=== PATIENT | female | born 1955 | race Caucasian/White ===

== ENCOUNTER → 2018-05-31 16:22 | Outpatient (CLI) | payer OTHER, SELFPAY ==
[2018-05-31 17:19] LABS: Add Manual Diff / Slide Review NO; Basophils Percent Auto 0.4 % (0-2); Eosinophils Percent Auto 1.6 % (2-4); Hemoglobin 13.8 g/dL (12.0-16.0); Lymphocytes Percent Auto 29.9 % (25-40); Mean Corpuscular HGB Conc 34.4 % (30-36); Mean Corpuscular Hemoglobin 31.5 PG (26-34); Mean Corpuscular Volume 91.5 fL (80-100); Monocytes Percent Auto 8.3 % (3-14); Neutrophils Absolute Auto 3800 /uL (3000-5900); Neutrophils Percent Auto 59.8 % (50-75); Platelet Count 217 X10^3/uL (150-400); Red Blood Cell Count 4.37 X10^6/uL (4.0-5.2); Red Cell Distribution Width 13.3 % (11.6-14.8); White Blood Cell Count 6.4 X10^3/uL (4.5-11.0)
[2018-05-31 18:15] LABS: Erythrocyte Sedimentation Rate 7 MM/HR (0-20)
[2018-05-31 18:28] LABS: C-Reactive Protein Quant < 0.5 mg/dL (<1.0); Rheumatoid Factor < 8.6 IU/mL (<12.0)
[2018-06-04 05:59] LABS: ANA Screen POSITIVE (Negative); DNA Antibody Crithidia IFA NEGATIVE (Negative); Rheumatoid Factor <14 IU/mL; Sjogren Antiboday SS-A <1.0 NEG AI (<1.0 NEGATIVE); Sjogren Antiboday SS-B <1.0 NEG AI (<1.0 NEGATIVE); Sm Antibody <1.0 NEG AI (<1.0 NEGATIVE); Sm/RNP Antibody <1.0 NEG AI (<1.0 NEGATIVE)
== END ==
PROVIDERS: PCP Internal Medicine; Visit Provider Nurse Practitioner Family
DX: M25.50 Pain in unspecified joint (principal)
CPT/HCPCS: 36415; 85025; 85651; 86038; 86140; 86430

== ENCOUNTER 2020-04-23 11:38 | Emergency (ER) | payer OTHER, SELFPAY ==
[2020-04-23] VITALS (15 sets, daily range): BP systolic 123–159; BP diastolic 63–88; PULSE 65–98; RESP 14–28; TEMP 36.5; O2SAT 93–98; BMI 22.9
--- NOTE | 2020-04-23 12:01 | DI.CT.S_ITS ---
PROCEDURE: CT KIDNEY URETER BLADDER (KUB) INDICATIONS: left flank pain - urinary urgency TECHNIQUE: Noncontrast 5 mm thick sections acquired from the diaphragms to the symphysis. 5 mm thick coronal and sagittal reformats were then performed. For radiation dose reduction, the following was used: automated exposure control, adjustment of mA and/or kV according to patient size. COMPARISON: None. FINDINGS: Image quality: Excellent. Lung bases: Lung bases are clear. Heart size is normal. Urinary system: Both kidneys are normal in size. There mild to moderate left-sided hydronephrosis and hydroureter extending to the level of left UVJ. 1 cm stone is seen in dependent portion of bladder lumen just distal to left UVJ likely represent a passed left-sided stone. No right-sided hydronephrosis or perinephric fat stranding. Right ureter is within normal limits. Bladder wall thickness is normal. Other solid organs: Liver is normal in size. Numerous well-circumscribed hypodense and areas are seen scattered in the liver parenchyma measures up to 4.3 x 3.8 cm in size in anterior segment of right hepatic lobe and likely represent hepatic cysts. Gallbladder is within normal limits. Pancreas is normal in contours. Spleen is normal in size. No adrenal nodules. Peritoneum and bowel: Unenhanced bowel loops demonstrate normal wall thickness and caliber. No free fluid or air. The appendix is visualized and is within normal limits. Sigmoid diverticulosis is seen, no CT evidence of acute diverticulitis. Nodes and vessels: No retroperitoneal or mesenteric adenopathy by size criteria. Aorta and inferior vena cava are normal in caliber. Abdominal wall: No ventral hernias. Pelvis: No free pelvic fluid. No inguinal hernias or adenopathy. Bones: No suspicious bony lesions. No vertebral body compression fractures. IMPRESSION: 1. Finding is suggestive of a passed 1 cm left renal stone with mild to moderate left-sided hydronephrosis and hydroureter. 2. No right-sided renal stone or hydronephrosis. 3. No bowel obstruction. No free fluid or free air. Normal appendix. 4. Numerous hypodense areas scattered in the liver likely represent hepatic cysts. Dictated by: Pablo Smith M.D. on 04/23/2020 at 12:39 Approved by: Pablo Smith M.D. on 04/23/2020 at 13:15
[2020-04-23 12:02] LABS: Bacteria Urine None Seen
[2020-04-23 12:10] LABS: Amorphous Sediment Urine 1+; Culture Indicated Urine Cult Not Indicated; RBC Urine 10-30/HPF (0-5/HPF); WBC Urine 0-1/HPF (0-5/HPF)
--- NOTE | 2020-04-23 12:20 | ED_ITS ---
HPI - Abdominal Pain General Chief Complaint: Abdominal Pain Stated Complaint: ABDOMEN PAIN/ PRESSURE Time Seen by Provider: 04/23/20 11:46 Source: patient Mode of arrival: Ambulatory Limitations: no limitations History of Present Illness HPI narrative: The patient is a 64-year-old female who presents with left lower quadrant pain and urinary frequency ongoing for about a week. She says that her urinary urgency is pretty profound but she also has intense sharp pain on the left side which comes and goes in waves. It seems to be progressively getting worse she felt nauseous and even throughout prior to arrival. She denies any fever body aches sweats or chills. She is having normal bowel movements. She has had a kidney stone in the past she can not remember at this is what it felt like or not. She actually denies any left flank pain MD complaint: abdominal pain Pain Consistency: intermittent Related Data Previous Rx's Medication Instructions Recorded ondansetron 4 mg PO Q8H PRN #10 tab 04/23/20 tamsulosin [Flomax] 0.4 mg PO DAILY #7 cap 04/23/20 Allergies Allergy/AdvReac Type Severity Reaction Status Date / Time epinephrine [EPINEPHRINE] Allergy Unknown Heart Verified 04/23/20 11:46 palpatations Review of Systems Review of Systems Narrative: GENERAL: Denies chills, fatigue, malaise, fever, sweats, travel HEENT: Denies sinus pain, ear pain, sore throat, difficulty swallowing, neck pain RESPIRATORY: Denies dyspnea, cough, wheezing, hemoptysis, sputum. CARDIOVASCULAR: Denies chest pain, palpitations, orthopnea, edema GASTROINTESTINAL: See HPI : See HPI MUSCULOSKELETAL: Denies weakness, joint pain, or bony pain SKIN: No rash, no erythema, no pruritus NEUROLOGIC: Denies weakness, dizziness, headache, numbness, change in speech, confusion PSYCHIATRIC: No concerning psychosocial issues. 12 point review of systems is negative except for those stated above and HPI Patient History Medical History Foot pain (Chronic 2004) H/O renal calculi (Acute) History of vaginal delivery (Resolved 1980) Plantar warts (Resolved ~1969) Surgical History Anesthesia (Resolved) History of dilation and curettage (Resolved 1980) Family History Father Age: 95 Fam hx-ischem heart disease Family history of prostate cancer Mother Family history of ovarian cancer Brother No problems noted. Sister No problems noted. Social History Smoking Status: Never smoker Smoking Status: Never smoker alcohol intake frequency: holidays/special occasions only Substance Use Type: does not use Exam Initial Vital Signs Initial Vital Signs: Vital Signs Temperature 97.7 F 04/23/20 11:40 Pulse Rate 98 H 04/23/20 11:40 Respiratory Rate 17 04/23/20 11:40 Blood Pressure 138/88 04/23/20 11:40 Pulse Oximetry 95 04/23/20 11:40 GENERAL: Well-appearing, well-nourished and in no acute distress. HEENT: Head atraumatic,EOMI, pupils reactive CARDIOVASCULAR: Regular rate and rhythm without murmurs, rubs or gallops. RESPIRATORY: Breath sounds equal bilaterally, no wheezes rales or rhonchi. ABDOMEN: Soft, tender left lower quadrant no guarding or rebound : No CVA tenderness EXTREMITIES: Normal range of motion, no clubbing or edema. Neurovascularly intact NEUROLOGICAL: Alert and oriented x4.Normal gait and speech. SKIN: Warm, dry, no laceration, no petechiae, no rashes or lesions. Course Orders Ordered: ED Orders 04/23/20 11:50 Urine Microscopic Stat 04/23/20 12:01 CT kidney ureter bladder (KUB) Stat 04/23/20 12:12 Complete Blood Count AUTO DIFF Stat Comprehensive Metabolic Panel Stat Lipase Stat Discontinued Medications Ketorolac Tromethamine (Toradol) 15 mg IV NOW ONE Stop: 04/23/20 12:02 Last Admin: 04/23/20 12:30 Dose: 15 mg Documented by: RICO Ondansetron HCl (Zofran) 4 mg IV NOW ONE Stop: 04/23/20 12:02 Last Admin: 04/23/20 12:33 Dose: 4 mg Documented by: RICO Consultations Consultation #1: Dr. Kingston, recommends adding Flomax, and is happy to see patient as outpatient if needed Time: 13:45 Vital Signs Vital signs: Vital Signs - 8 hr 04/23/20 11:40 04/23/20 11:43 04/23/20 11:44 Temperature 97.7 F Pulse Rate 98 H 97 H 96 H Respiratory Rate 17 Blood Pressure 138/88 138/88 Pulse Oximetry 95 96 96 04/23/20 11:50 04/23/20 12:00 04/23/20 12:01 Temperature Pulse Rate 90 86 91 H Respiratory Rate 18 19 21 Blood Pressure 159/66 H Pulse Oximetry 98 98 98 04/23/20 12:10 04/23/20 12:20 04/23/20 12:30 Temperature Pulse Rate 74 75 92 H Respiratory Rate 28 H 21 Blood Pressure Pulse Oximetry 97 93 93 04/23/20 12:39 04/23/20 12:40 04/23/20 12:50 Temperature Pulse Rate 73 78 66 Respiratory Rate 14 18 18 Blood Pressure 131/63 Pulse Oximetry 98 97 96 04/23/20 13:00 04/23/20 13:27 04/23/20 13:30 Temperature Pulse Rate 66 69 65 Respiratory Rate 17 18 18 Blood Pressure 123/72 Pulse Oximetry 97 97 97 MDM - Abdominal Pain Lab Data Attestation: I reviewed the patient's lab results. Result diagrams: 04/23/20 12:12 04/23/20 12:12 Labs: Lab Results 04/23/20 04/23/20 04/23/20 Range/Units 11:50 12:12 12:12 WBC 5.9 (4.5-11.0) X10^3/uL RBC 4.72 (4.0-5.2) X10^6/uL Hgb 15.1 (12.0-16.0) g/dL Hct 43.4 (36-46) % MCV 92.0 (80-100) fL MCH 31.9 (26-34) PG MCHC 34.7 (30-36) % RDW 13.2 (11.6-14.8) % Plt Count 267 (150-400) X10^3/uL Neut % (Auto) 57.8 (50-75) % Lymph % (Auto) 29.8 (25-40) % [place] % (Auto) 10.1 (3-14) % Eos % (Auto) 1.8 L (2-4) % Baso % (Auto) 0.5 (0-2) % Neut # (Auto) 3400 (4664-9095) /uL Lymph # (Auto) 1700 (1434-1140) /uL [place] # (Auto) 600 (0-900) /uL Eos # (Auto) 100 (0-450) /uL Baso # (Auto) 0 (0-100) /uL Sodium 139 (137-145) mmol/L Potassium 4.2 (3.4-5.1) mmol/L Chloride 105 (98-107) mmol/L Carbon Dioxide 26 (22-32) mmol/L BUN 14 (7-17) mg/dL Creatinine 0.75 (0.52-1.04) mg/dL Estimated GFR > 60.0 (>60) mL/min BUN/Creatinine Ratio 18.7 (6-22) Glucose 96 (80-110) mg/dL Calcium 10.2 (8.4-10.2) mg/dL Total Bilirubin 0.6 (0.2-1.3) mg/dL AST 35 (14-36) IU/L ALT 25 (<35) IU/L Alkaline Phosphatase 65 (38-126) U/L Total Protein 8.0 (6.3-8.2) g/dL Albumin 4.6 (3.5-5.0) g/dL Globulin 3.4 (1.7-4.1) g/dL Albumin/Globulin Ratio 1.4 (1.0-2.8) Lipase 211 (23-300) U/L Urine RBC 10-30/hpf H (0-5/HPF) Urine WBC 0-1/hpf (0-5/HPF) Amorphous Sediment 1+ Urine Bacteria None seen (None) Ur Culture Indicated? Cult not indicated Point of care testing: Urine Dip Bedside Urine Glucose Negative Bedside Urine Bilirubin - Negative Bedside Urine Ketone - Negative Urine Specific [place] 1.030 Bedside Urine Occult Blood +++ Bedside Urine pH 6.0 Bedside Urine Protein - Negative Bedside Urine Urobilinogen - Negative Bedside Urine Nitrite - Negative Bedside Urine Leukocytes - Negative Esterase Imaging Data CT scan - abdomen/pelvis: Radiologist's Impression: PROCEDURE: CT KIDNEY URETER BLADDER (KUB) INDICATIONS: left flank pain - urinary urgency TECHNIQUE: Noncontrast 5 mm thick sections acquired from the diaphragms to the symphysis. 5 mm thick coronal and sagittal reformats were then performed. For radiation dose reduction, the following was used: automated exposure control, adjustment of mA and/or kV according to patient size. COMPARISON: None. FINDINGS: Image quality: Excellent. Lung bases: Lung bases are clear. Heart size is normal. Urinary system: Both kidneys are normal in size. There mild to moderate left- sided hydronephrosis and hydroureter extending to the level of left UVJ. 1 cm stone is seen in dependent portion of bladder lumen just distal to left UVJ likely represent a passed left-sided stone. No right-sided hydronephrosis or perinephric fat stranding. Right ureter is within normal limits. Bladder wall thickness is normal. Other solid organs: Liver is normal in size. Numerous well-circumscribed hypodense and areas are seen scattered in the liver parenchyma measures up to 4.3 x 3.8 cm in size in anterior segment of right hepatic lobe and likely represent hepatic cysts. Gallbladder is within normal limits. Pancreas is normal in contours. Spleen is normal in size. No adrenal nodules. Peritoneum and bowel: Unenhanced bowel loops demonstrate normal wall thickness and caliber. No free fluid or air. The appendix is visualized and is within normal limits. Sigmoid diverticulosis is seen, no CT evidence of acute diverticulitis. Nodes and vessels: No retroperitoneal or mesenteric adenopathy by size criteria. Aorta and inferior vena cava are normal in caliber. Abdominal wall: No ventral hernias. Pelvis: No free pelvic fluid. No inguinal hernias or adenopathy. Bones: No suspicious bony lesions. No vertebral body compression fractures. IMPRESSION: 1. Finding is suggestive of a passed 1 cm left renal stone with mild to moderate left-sided hydronephrosis and hydroureter. 2. No right-sided renal stone or hydronephrosis. 3. No bowel obstruction. No free fluid or free air. Normal appendix. 4. Numerous hypodense areas scattered in the liver likely represent hepatic cysts. Dictated by: Pablo Smith M.D. on 04/23/2020 at 12:39 Approved by: Pablo Smith M.D. on 04/23/2020 at 13:15 MDM Narrative Medical decision making narrative: Patient is found to have a large 1 cm stone in her bladder suggestive of a recently passed kidney stone. This may be the cause of her urinary urgency. There is no sign of infection on her urine. I have discussed case with urology who recommends adding Flomax and to be seen as an outpatient. He said it is possible to pass the stone naturally but probably unlikely. I have discussed with patient signs and symptoms and when to return I also discussed with her need to follow-up with urology. Her pain is significantly better after Toradol and Zofran. Discharge Plan Departure Patient Disposition: Home Clinical Impression: Calculus of kidney Discharge Date/Time: 04/23/20 14:07 Instructions: DI for Kidney Stones Activity Restrictions/Additional Instructions: * You've been diagnosed with kidney stone * What to do: Increase fluid intake, Strain urine, try to catch stone * Please follow-up with your primary care provider in the next 2-3 days, you may require urology consultation please discuss this with -If you should have fever, or pain is uncontrolled with medication at home or any other concerning symptoms return to ER for further evaluation MEDICATIONS-->Sent to [facility] in [place] Take Motrin 800 mg every 8 hours as needed for pain Take Zofran every 4-6 hours if needed for nausea Take Flomax 1 tablet once a day Prescriptions: New tamsulosin [Flomax] 0.4 mg capsule,extended release 24hr 0.4 mg PO DAILY Qty: 7 RF: 0 ondansetron 4 mg tablet,disintegrating 4 mg PO Q8H PRN (Reason: nausea and vomiting) Qty: 10 RF: 0 Referrals: Shoshana Kingston MD [Physician] - Antonio Corcoran MD [Primary Care Provider] -
[2020-04-23 12:24] LABS: Add Manual Diff / Slide Review NO; Basophils Absolute Auto 0 /uL (0-100); Basophils Percent Auto 0.5 % (0-2); Eosinophils Absolute Auto 100 /uL (0-450); Eosinophils Percent Auto 1.8 % (2-4); Hematocrit 43.4 % (36-46); Hemoglobin 15.1 g/dL (12.0-16.0); Lymphocytes Absolute Auto 1700 /uL (1100-4500); Lymphocytes Percent Auto 29.8 % (25-40); Mean Corpuscular HGB Conc 34.7 % (30-36); Mean Corpuscular Hemoglobin 31.9 PG (26-34); Monocytes Absolute Auto 600 /uL (0-900); Monocytes Percent Auto 10.1 % (3-14); Neutrophils Absolute Auto 3400 /uL (1500-7000); Neutrophils Percent Auto 57.8 % (50-75); Platelet Count 267 X10^3/uL (150-400); Red Blood Cell Count 4.72 X10^6/uL (4.0-5.2); Red Cell Distribution Width 13.2 % (11.6-14.8); White Blood Cell Count 5.9 X10^3/uL (4.5-11.0)
[2020-04-23] MEDS: KETOROLAC 60 MG/2 ML VIAL 15 MG IV (12:30)
[2020-04-23] MEDS: ONDANSETRON 4 MG/2 ML INJ IV (12:33)
[2020-04-23 12:34] LABS: Alanine Aminotransferase 25 IU/L (<35); Albumin 4.6 g/dL (3.5-5.0); Albumin Globulin Ratio 1.4 (1.0-2.8); Alkaline Phosphatase 65 U/L (38-126); Aspartate Aminotransferase 35 IU/L (14-36); BUN Creatinine Ratio 18.7 (6-22); Bilirubin Total 0.6 mg/dL (0.2-1.3); Blood Urea Nitrogen 14 mg/dL (7-17); Calcium 10.2 mg/dL (8.4-10.2); Carbon Dioxide 26 mmol/L (22-32); Chloride 105 mmol/L (98-107); Estimated Glomerular Filt Rate > 60.0 mL/min (>60); Globulin 3.4 g/dL (1.7-4.1); Glucose 96 mg/dL (80-110); HEMOLYSIS 19 (0-50); Lipase 211 U/L (23-300); Potassium 4.2 mmol/L (3.4-5.1); Sodium 139 mmol/L (137-145)
== END 2020-04-23 14:07 | disposition home or self-care (01) ==
PROVIDERS: Emergency Provider Emergency Medicine; Family Provider Internal Medicine; PCP Internal Medicine
DX: N20.0 Calculus of kidney (principal)
CPT/HCPCS: 36415; 74176; 80053; 81003; 81015; 83690; 85025; 96374; 96375; 99284; J1885; J2405

== ENCOUNTER 2020-04-30 13:39 | Emergency (ER) | payer OTHER, SELFPAY ==
[2020-04-30 13:44] VITALS: BP 148/68; PULSE 86; RESP 16; TEMP 37.2; O2SAT 97; BMI 22.9
[2020-04-30] MEDS: SODIUM CHLORIDE 0.9% 1,000 ML 150 ML IV (14:07)
[2020-04-30 14:15] LABS: Add Manual Diff / Slide Review NO; Basophils Absolute Auto 0 /uL (0-100); Basophils Percent Auto 0.5 % (0-2); Eosinophils Absolute Auto 100 /uL (0-450); Hematocrit 41.8 % (36-46); Hemoglobin 14.2 g/dL (12.0-16.0); Lymphocytes Absolute Auto 1900 /uL (1100-4500); Lymphocytes Percent Auto 31.4 % (25-40); Mean Corpuscular HGB Conc 33.9 % (30-36); Mean Corpuscular Volume 91.6 fL (80-100); Monocytes Absolute Auto 600 /uL (0-900); Monocytes Percent Auto 9.7 % (3-14); Neutrophils Absolute Auto 3500 /uL (1500-7000); Neutrophils Percent Auto 56.4 % (50-75); Platelet Count 251 X10^3/uL (150-400); Red Blood Cell Count 4.56 X10^6/uL (4.0-5.2); Red Cell Distribution Width 13.2 % (11.6-14.8); White Blood Cell Count 6.2 X10^3/uL (4.5-11.0)
[2020-04-30] MEDS: ONDANSETRON 4 MG/2 ML INJ IV ×2 (14:17→15:01)
[2020-04-30 14:26] LABS: Alanine Aminotransferase 24 IU/L (<35); Albumin 4.7 g/dL (3.5-5.0); Albumin Globulin Ratio 1.5 (1.0-2.8); Alkaline Phosphatase 69 U/L (38-126); Aspartate Aminotransferase 35 IU/L (14-36); BUN Creatinine Ratio 24.7 (6-22); Bilirubin Total 0.6 mg/dL (0.2-1.3); Blood Urea Nitrogen 20 mg/dL (7-17); Calcium 10.2 mg/dL (8.4-10.2); Carbon Dioxide 27 mmol/L (22-32); Chloride 104 mmol/L (98-107); Estimated Glomerular Filt Rate > 60.0 mL/min (>60); Globulin 3.1 g/dL (1.7-4.1); Glucose 95 mg/dL (80-110); HEMOLYSIS < 15 (0-50); Lipase 173 U/L (23-300); Potassium 4.3 mmol/L (3.4-5.1); Sodium 138 mmol/L (137-145); Total Protein 7.8 g/dL (6.3-8.2)
[2020-04-30 14:27] LABS: Bacteria Urine None Seen; WBC Urine None Seen (0-5/HPF)
--- NOTE | 2020-04-30 14:31 | ED.FEMALEGU ---
HPI - Female Genitourinary <Soo Montes PA-C - Last Filed: 04/30/20 23:29> General Chief complaint: Urogenital-Female Stated complaint: kidney stone pain and pressure Time Seen by Provider: 04/30/20 14:31 Source: patient Mode of arrival: Ambulatory History of Present Illness HPI Narrative: This is a 64-year-old woman with a recent history of ureterolithiasis and a 1 cm stone in the bladder on CT (04/23/20), who presents to the emergency department complaining of severe left lower quadrant pain and generalized abdominal ?pressure? that began this morning and has been worsening all day she says that this pain feels very similar to the pain that she had when she was here recently for her stone except she thinks that it is worse. She has also been having some nausea and some vomiting today. She says the pain is constant but it is ?coming in waves?. She says I ?cannot remember if I ate anything today but I think it must have?. She states because she has been straining from the pressure that she feels in her bladder she has been having loose stools all day as well she says that this happened with her previous episode too. She has not taken anything for pain today. She states ?something is definitely wrong?. She does not want any IV fluids initially because she feels her bladder is full of pressure and she feels like she is going all the time, but only a tiny bit at a time and is worried more fluids would make this worse. She denies fever, chills, chest pain, back pain, syncope, or any other symptoms. MD Complaint: dysuria, pelvic pain and other (Abdominal pain) Onset (ago): hour(s) (8) Location: suprapubic, LLQ and other (Generalized) Female Urogenital Radiation: Non-Radiating Severity: severe Severity scale (1-10): 10 Quality: Aching (Waves) Duration: constant and progressively worsening Relieving factors: none Exacerbating factors: none Urinary symptoms: Difficulty Urinating, Hematuria and Urgency Patient : No Related Data Home Medications Medication Instructions Recorded Confirmed cholecalciferol (vitamin D3) 25 mcg PO DAILY 05/03/20 05/03/20 [Vitamin D3] multivitamin 1 tab PO DAILY 07/10/20 07/10/20 Previous Rx's Medication Instructions Recorded ondansetron 4 mg PO Q8H PRN #10 tab 04/23/20 tamsulosin [Flomax] 0.4 mg PO DAILY #7 cap 04/23/20 oxycodone 5 mg PO Q4H PRN #14 tab 05/03/20 Allergies Allergy/AdvReac Type Severity Reaction Status Date / Time epinephrine [EPINEPHRINE] Allergy Unknown Heart Verified 05/03/20 09:28 palpatations Review of Systems <Soo Montes PA-C - Last Filed: 04/30/20 23:29> Review of Systems Narrative: GENERAL: Denies chills, fatigue, malaise, fever, sweats. HEENT: Denies sinus pain, ear pain, sore throat, difficulty swallowing, dizziness. RESPIRATORY: Denies dyspnea, cough, wheezing, hemoptysis, sputum. CARDIOVASCULAR: Denies chest pain, palpitations, orthopnea, edema, GASTROINTESTINAL: Denies nausea, vomiting, positive for abdominal pain and pelvic pressure, positive for loose stools today, negative for diarrhea, constipation, melena. : Denies dysuria, positive for frequency, negative for incontinence, hematuria, urinary retention. MUSCULOSKELETAL: denies weakness, joint pain, or bony pain SKIN: Denies rash, skin lesions, or other NEUROLOGIC: Denies weakness, headache, numbness, change in speech, confusion, seizures, incoordination. PSYCHIATRIC: No concerning psychosocial issues. 12 point review of systems is negative except for those stated above Patient History <Soo Montes PA-C - Last Filed: 04/30/20 23:29> Medical History (Updated 05/01/20 @ 11:28 by Shoshana Kingston MD) Calculus of distal left ureter (Acute) Foot pain (Chronic 2004) H/O renal calculi (Acute) History of vaginal delivery (Resolved 1980) Lower urinary tract symptoms (LUTS) (Acute) Personal history of urinary calculi (Acute) Plantar warts (Resolved ~1969) Surgical History Anesthesia (Resolved) History of dilation and curettage (Resolved 1980) Family History Father Age: 95 Fam hx-ischem heart disease Family history of prostate cancer Mother Family history of ovarian cancer Brother No problems noted. Sister No problems noted. alcohol intake frequency: holidays/special occasions only Substance Use Type: does not use Exam <Soo Montes PA-C - Last Filed: 04/30/20 23:29> Narrative Exam Narrative: GENERAL: 64 year old patient appears stated age. Well-nourished, well-developed patient, in moderate-severe distress, sitting up in hospital bed, very uncomfortable looking. HEAD: Atraumatic. Normocephalic. EYES: Pupils equal round and reactive. Extraocular motions intact. No scleral icterus. No injection or drainage. ENT: Nose without bleeding, purulent drainage. Throat without erythema, tonsillar hypertrophy or exudate. Airway patent. NECK: Trachea midline. Non tender CARDIOVASCULAR: Regular rate and rhythm without murmurs, gallops, or rubs. RESPIRATORY: Clear to auscultation. Breath sounds equal bilaterally. No wheezes, rales, or rhonchi. GASTROINTESTINAL: Abdomen with guarding, diffuse tender, most prominent in the left lower quadrant nondistended. EXTREMITIES: No edema or joint tenderness. BACK: Nontender without deformity or crepitance. No flank tenderness. NEURO: AOx3. SKIN: No rash or erythema of visible areas Initial Vital Signs Initial Vital Signs: Vital Signs Temperature 98.9 F 04/30/20 13:44 Pulse Rate 86 04/30/20 13:44 Respiratory Rate 16 04/30/20 13:44 Blood Pressure 148/68 H 04/30/20 13:44 Pulse Oximetry 97 04/30/20 13:44 <Ami Wills DO - Last Filed: 05/05/20 07:31> Initial Vital Signs Initial Vital Signs: Vital Signs Temperature 98.9 F 04/30/20 13:44 Pulse Rate 86 04/30/20 13:44 Respiratory Rate 16 04/30/20 13:44 Blood Pressure 148/68 H 04/30/20 13:44 Pulse Oximetry 97 04/30/20 13:44 Scores <ADRIENNE Guzman Last Filed: 04/30/20 23:29> GCS [place] coma scale eye opening: Spontaneous Williams coma scale verbal response: Orientated Williams coma scale motor response: Obey commands Williams coma scale total score: 15 Course <ADRIENNE Guzman Last Filed: 04/30/20 23:29> Course Course Narrative: Radiologist called and advised that she has a stone in her distal ureter that he believes is about 12 mm on the long axis, this was believed to have been passed into the bladder on the previous study however he states it is clearly not passed into the bladder he believes it is the same stone visualized on the previous study and she also has hydronephrosis however hydroureter and some hypoperfusion of her left renal cortex. 16:[address] Kingston and provided patient report and CT imaging impression, he advises since the patient has an appointment with him tomorrow, she should be NPO after midnight tonight and he will get things set up for possibly going and with laser tomorrow in getting this stone removed. He advises to continue Flomax and either tramadol or Toradol for pain. 16:27 Orders Ordered: Discontinued Medications Sodium Chloride (Normal Saline 0.9%) 1,000 mls @ 150 mls/hr IV CONT BIGG Last Infusion: 04/30/20 16:48 Dose: 0 mls/hr Documented by: Admin: 04/30/20 14:07 Dose: 150 mls/hr Documented by: ESHA Ketorolac Tromethamine (Toradol) 30 mg IM NOW ONE Stop: 04/30/20 14:42 Last Admin: 04/30/20 14:51 Dose: 30 mg Documented by: DEMETRIUS Ondansetron HCl (Zofran) 4 mg IV NOW ONE Stop: 04/30/20 14:16 Last Admin: 04/30/20 14:17 Dose: 4 mg Documented by: KIRK Ondansetron HCl (Zofran) 4 mg IV NOW ONE Stop: 04/30/20 14:57 Last Admin: 04/30/20 15:01 Dose: 4 mg Documented by: DEMETRIUS Vital Signs Vital signs: Vital Signs - 8 hr 04/30/20 16:55 Pulse Rate 66 Respiratory Rate 14 Blood Pressure 119/57 L Pulse Oximetry 100 <Ami Wills DO - Last Filed: 05/05/20 07:31> Orders Ordered: Discontinued Medications Sodium Chloride (Normal Saline 0.9%) 1,000 mls @ 150 mls/hr IV CONT BIGG Last Infusion: 04/30/20 16:48 Dose: 0 mls/hr Documented by: Admin: 04/30/20 14:07 Dose: 150 mls/hr Documented by: ESHA Ketorolac Tromethamine (Toradol) 30 mg IM NOW ONE Stop: 04/30/20 14:42 Last Admin: 04/30/20 14:51 Dose: 30 mg Documented by: DEMETRIUS Ondansetron HCl (Zofran) 4 mg IV NOW ONE Stop: 04/30/20 14:16 Last Admin: 04/30/20 14:17 Dose: 4 mg Documented by: KIRK Ondansetron HCl (Zofran) 4 mg IV NOW ONE Stop: 04/30/20 14:57 Last Admin: 04/30/20 15:01 Dose: 4 mg Documented by: DEMETRIUS Vital Signs Vital signs: Vital Signs - 8 hr 04/30/20 16:55 Pulse Rate 66 Respiratory Rate 14 Blood Pressure 119/57 L Pulse Oximetry 100 MDM - Female Genitourinary <Soo Montes PA-C - Last Filed: 04/30/20 23:29> Differential Diagnosis Differential diagnosis: Likely urinary tract infection, cystitis and other (Ureterolithiasis, hydronephrosis, colitis, bowel obstruction,) Medical Records Attestation: I reviewed the patient's medical records. Lab Data Attestation: I reviewed the patient's lab results. Result diagrams: 04/30/20 14:05 04/30/20 14:05 Labs: Lab Results 04/30/20 04/30/20 04/30/20 Range/Units 14:05 14:05 14:10 WBC 6.2 (4.5-11.0) X10^3/uL RBC 4.56 (4.0-5.2) X10^6/uL Hgb 14.2 (12.0-16.0) g/dL Hct 41.8 (36-46) % MCV 91.6 (80-100) fL MCH 31.0 (26-34) PG MCHC 33.9 (30-36) % RDW 13.2 (11.6-14.8) % Plt Count 251 (150-400) X10^3/uL Neut % (Auto) 56.4 (50-75) % Lymph % (Auto) 31.4 (25-40) % [place] % (Auto) 9.7 (3-14) % Eos % (Auto) 2.0 (2-4) % Baso % (Auto) 0.5 (0-2) % Neut # (Auto) 3500 (5253-3517) /uL Lymph # (Auto) 1900 (1679-1686) /uL [place] # (Auto) 600 (0-900) /uL Eos # (Auto) 100 (0-450) /uL Baso # (Auto) 0 (0-100) /uL Sodium 138 (137-145) mmol/L Potassium 4.3 (3.4-5.1) mmol/L Chloride 104 (98-107) mmol/L Carbon Dioxide 27 (22-32) mmol/L BUN 20 H (7-17) mg/dL Creatinine 0.81 (0.52-1.04) mg/dL Estimated GFR > 60.0 (>60) mL/min BUN/Creatinine Ratio 24.7 H (6-22) Glucose 95 (80-110) mg/dL Calcium 10.2 (8.4-10.2) mg/dL Total Bilirubin 0.6 (0.2-1.3) mg/dL AST 35 (14-36) IU/L ALT 24 (<35) IU/L Alkaline Phosphatase 69 (38-126) U/L Total Protein 7.8 (6.3-8.2) g/dL Albumin 4.7 (3.5-5.0) g/dL Globulin 3.1 (1.7-4.1) g/dL Albumin/Globulin Ratio 1.5 (1.0-2.8) Lipase 173 (23-300) U/L Urine RBC 30-100/hpf H (0-5/HPF) Urine WBC None seen (0-5/HPF) Ur Squamous Epith Cells 0-1 /hpf (0-5/HPF) Amorphous Sediment 1+ Urine Bacteria None seen (None) Ur Culture Indicated? Cult not indicated COVID-19 PCR (Negative) 04/30/20 Range/Units 17:04 WBC (4.5-11.0) X10^3/uL RBC (4.0-5.2) X10^6/uL Hgb (12.0-16.0) g/dL Hct (36-46) % MCV (80-100) fL MCH (26-34) PG MCHC (30-36) % RDW (11.6-14.8) % Plt Count (150-400) X10^3/uL Neut % (Auto) (50-75) % Lymph % (Auto) (25-40) % [place] % (Auto) (3-14) % Eos % (Auto) (2-4) % Baso % (Auto) (0-2) % Neut # (Auto) (1105-1497) /uL Lymph # (Auto) (5677-5958) /uL [place] # (Auto) (0-900) /uL Eos # (Auto) (0-450) /uL Baso # (Auto) (0-100) /uL Sodium (137-145) mmol/L Potassium (3.4-5.1) mmol/L Chloride (98-107) mmol/L Carbon Dioxide (22-32) mmol/L BUN (7-17) mg/dL Creatinine (0.52-1.04) mg/dL Estimated GFR (>60) mL/min BUN/Creatinine Ratio (6-22) Glucose (80-110) mg/dL Calcium (8.4-10.2) mg/dL Total Bilirubin (0.2-1.3) mg/dL AST (14-36) IU/L ALT (<35) IU/L Alkaline Phosphatase (38-126) U/L Total Protein (6.3-8.2) g/dL Albumin (3.5-5.0) g/dL Globulin (1.7-4.1) g/dL Albumin/Globulin Ratio (1.0-2.8) Lipase (23-300) U/L Urine RBC (0-5/HPF) Urine WBC (0-5/HPF) Ur Squamous Epith Cells (0-5/HPF) Amorphous Sediment Urine Bacteria (None) Ur Culture Indicated? COVID-19 PCR Negative (Negative) Urine Dip Bedside Urine Glucose Negative Bedside Urine Bilirubin - Negative Bedside Urine Ketone ++ 40 Urine Specific [place] 1.025 Bedside Urine Occult Blood +++ Bedside Urine pH 5.5 Bedside Urine Protein - Negative Bedside Urine Urobilinogen - Negative Bedside Urine Nitrite - Negative Bedside Urine Leukocytes - Negative Esterase Imaging Data CT scan - abdomen/pelvis: Attestation: I personally reviewed and interpreted this imaging study as follows: Radiologist's Impression: [address] [address] [address] Scan Report Signed Patient: Ignacia Thomas JMR#: [id number] : 7Acct:[id number] Age/Sex: 64 / FDate of Service: 04/30/20 Loc: ED Accession Number: [id number] Procedure: CT abdomen pelvis w con Ordering Provider: Soo Montes P.A-C PROCEDURE: CT ABDOMEN PELVIS W CON INDICATIONS: severe abd pain/LLQ recent ureterolithiasis TECHNIQUE: After the administration of intravenous contrast, 5 mm thick sections acquired from the diaphragm to the symphysis. 5 mm coronal and sagittal reformats were acquired. For radiation dose reduction, the following was used: automated exposure control, adjustment of mA and/or kV according to patient size. COMPARISON: [facility], CT, CT KIDNEY URETER BLADDER (KUB), 04/23/2020, 12:06. [facility], CT, ABDOMEN/PELVIS WITH CONTRAST, 01/23/2017, 14:59. FINDINGS: Image quality: Excellent. ABDOMEN: Lung bases: Lung bases are clear. Heart size is normal. Solid organs: Liver is normal in size and enhancement. Gallbladder appears normal. Biliary system is non dilated. Pancreas enhances normally. Spleen is normal in size and enhancement. No adrenal nodules. Kidneys demonstrate asymmetric size and enhancement, without right-sided hydronephrosis, but with mild enlargement of the craniocaudad length of the left kidney and slight hypoenhancement of the left renal cortex when compared to that on the right. This is associated with moderate left-sided hydronephrosis and hydroureter that extends inferiorly to the bladder level. At the bladder level there is a ovoid calculus that has an AP dimension of 10 mm and a transverse dimension of 7 mm. It is exactly in the same position and orientation as on the prior CT from 04/23/20, producing an appearance of impacted far distal left ureteral stone virtually at the orifice protruding into the bladder lumen. There are several adjacent pelvic phleboliths that have not changed in position from the prior study 04/23/20. This same calculus appears to have been present 01/23/17.. Peritoneum and bowel: Bowel loops demonstrate normal wall thickness and caliber. No free fluid or air. Nodes and vessels: No retroperitoneal or mesenteric adenopathy by size criteria. Aorta and inferior vena cava are normal in size. Miscellaneous: No ventral hernias. PELVIS: Genitourinary: Bladder wall thickness is normal. Miscellaneous: No inguinal hernias or adenopathy. Bones: No suspicious bony lesions. No vertebral body compression fractures. IMPRESSION: Long-standing far distal ureteral stone on the left slightly smaller in size in January of 2017 but present 04/23/20 and again today 04/30/20 with identical orientation and positioning. Despite this appearing to be within the bladder lumen it appears to be located within the protruding far distal ureteral orifice that projects partially into the bladder lumen. Note is made of hydronephrosis that is moderate in severity and a small degree of reduced perfusion through the left kidney cortex given is lower degree of enhancement when compared to normal appearance of the right. Dictated by: Vitaly Davidson M.D. on 04/30/2020 at 16:06 Approved by: Vitaly Davidson M.D. on 04/30/2020 at 16:20 MDM Narrative Medical decision making narrative: This is a 64-year-old woman with a recent history of ureteral stone, believed to have been passed in to the bladder based on imaging performed on 04/23/2020 and resolution of symptoms at that time, who presents to the emergency department today with ongoing acute pelvic pain and pressure in the left lower quadrant, urinary frequency with low urine production and worsening pain. Differential diagnoses considered include ureterolithiasis, uti, pyelonephritis, bowel obstruction, diverticulitis Her symptoms, history and exam are consistent with urologic problem, due to her severe pain she was CT scanned again despite recent imaging, CT today showed evidence that she still has a large ureteral stone distally in the left ureter that has not passed into the bladder. Urology was consulted, Dr. Kingston was planning to see the patient tomorrow for a follow-up appointment, and has transitioned this to a follow-up appointment with a probable surgical intervention the same day. Patient was advised to be NPO after midnight tonight, advised to continue her Flomax and her Zofran as needed for nausea and provided a prescription for oral ketorolac for pain control. Emergency return precautions were provided, all questions were answered. <Ami Wills, - Last Filed: 05/05/20 07:31> Lab Data Labs: Lab Results 04/30/20 04/30/20 04/30/20 Range/Units 14:05 14:05 14:10 WBC 6.2 (4.5-11.0) X10^3/uL RBC 4.56 (4.0-5.2) X10^6/uL Hgb 14.2 (12.0-16.0) g/dL Hct 41.8 (36-46) % MCV 91.6 (80-100) fL MCH 31.0 (26-34) PG MCHC 33.9 (30-36) % RDW 13.2 (11.6-14.8) % Plt Count 251 (150-400) X10^3/uL Neut % (Auto) 56.4 (50-75) % Lymph % (Auto) 31.4 (25-40) % [place] % (Auto) 9.7 (3-14) % Eos % (Auto) 2.0 (2-4) % Baso % (Auto) 0.5 (0-2) % Neut # (Auto) 3500 (4170-2769) /uL Lymph # (Auto) 1900 (7755-0956) /uL [place] # (Auto) 600 (0-900) /uL Eos # (Auto) 100 (0-450) /uL Baso # (Auto) 0 (0-100) /uL Sodium 138 (137-145) mmol/L Potassium 4.3 (3.4-5.1) mmol/L Chloride 104 (98-107) mmol/L Carbon Dioxide 27 (22-32) mmol/L BUN 20 H (7-17) mg/dL Creatinine 0.81 (0.52-1.04) mg/dL Estimated GFR > 60.0 (>60) mL/min BUN/Creatinine Ratio 24.7 H (6-22) Glucose 95 (80-110) mg/dL Calcium 10.2 (8.4-10.2) mg/dL Total Bilirubin 0.6 (0.2-1.3) mg/dL AST 35 (14-36) IU/L ALT 24 (<35) IU/L Alkaline Phosphatase 69 (38-126) U/L Total Protein 7.8 (6.3-8.2) g/dL Albumin 4.7 (3.5-5.0) g/dL Globulin 3.1 (1.7-4.1) g/dL Albumin/Globulin Ratio 1.5 (1.0-2.8) Lipase 173 (23-300) U/L Urine RBC 30-100/hpf H (0-5/HPF) Urine WBC None seen (0-5/HPF) Ur Squamous Epith Cells 0-1 /hpf (0-5/HPF) Amorphous Sediment 1+ Urine Bacteria None seen (None) Ur Culture Indicated? Cult not indicated COVID-19 PCR (Negative) 04/30/20 Range/Units 17:04 WBC (4.5-11.0) X10^3/uL RBC (4.0-5.2) X10^6/uL Hgb (12.0-16.0) g/dL Hct (36-46) % MCV (80-100) fL MCH (26-34) PG MCHC (30-36) % RDW (11.6-14.8) % Plt Count (150-400) X10^3/uL Neut % (Auto) (50-75) % Lymph % (Auto) (25-40) % [place] % (Auto) (3-14) % Eos % (Auto) (2-4) % Baso % (Auto) (0-2) % Neut # (Auto) (3185-2474) /uL Lymph # (Auto) (4646-0182) /uL [place] # (Auto) (0-900) /uL Eos # (Auto) (0-450) /uL Baso # (Auto) (0-100) /uL Sodium (137-145) mmol/L Potassium (3.4-5.1) mmol/L Chloride (98-107) mmol/L Carbon Dioxide (22-32) mmol/L BUN (7-17) mg/dL Creatinine (0.52-1.04) mg/dL Estimated GFR (>60) mL/min BUN/Creatinine Ratio (6-22) Glucose (80-110) mg/dL Calcium (8.4-10.2) mg/dL Total Bilirubin (0.2-1.3) mg/dL AST (14-36) IU/L ALT (<35) IU/L Alkaline Phosphatase (38-126) U/L Total Protein (6.3-8.2) g/dL Albumin (3.5-5.0) g/dL Globulin (1.7-4.1) g/dL Albumin/Globulin Ratio (1.0-2.8) Lipase (23-300) U/L Urine RBC (0-5/HPF) Urine WBC (0-5/HPF) Ur Squamous Epith Cells (0-5/HPF) Amorphous Sediment Urine Bacteria (None) Ur Culture Indicated? COVID-19 PCR Negative (Negative) Urine Dip Bedside Urine Glucose Negative Bedside Urine Bilirubin - Negative Bedside Urine Ketone ++ 40 Urine Specific [place] 1.025 Bedside Urine Occult Blood +++ Bedside Urine pH 5.5 Bedside Urine Protein - Negative Bedside Urine Urobilinogen - Negative Bedside Urine Nitrite - Negative Bedside Urine Leukocytes - Negative Esterase Discharge Plan Departure Patient Disposition: Home Clinical Impression: Calculus of distal left ureter, Acute pelvic pain, female Discharge Date/Time: 04/30/20 17:16 Instructions: DI for Kidney Stones Activity Restrictions/Additional Instructions: Thank you for allowing us to be part of your care in the emergency department today. There is no evidence of an emergent or life threatening illness at this time, but follow up with your doctor in 1-2 days is recommended nonetheless to continue to rule out serious underlying causes of your symptoms. Please call the office for an appointment. Please return to the Emergency Department for any worsening or persistent symptoms. Please take medications as directed. After speaking with Dr. dieudonne del cid, the urologist he advises that you should plan for a possible surgical intervention tomorrow to remove the stone that is still present in the end of your left ureter and has not passed into the bladder. He advises that you do not eat or drink after midnight tonight, that you continue to take Flomax and I am also providing some pain medicine for you as well, you can take zofran as neeed for nausea. Please report to your appointment tomorrow with him as scheduled and they will go from there regarding possible surgical intervention. If you have questions regarding this you can call his office in the morning. If you develop new or concerning symptoms please do not hesitate to seek medical care. Prescriptions: No Action tamsulosin [Flomax] 0.4 mg capsule,extended release 24hr 0.4 mg PO DAILY Qty: 7 RF: 0 ondansetron 4 mg tablet,disintegrating 4 mg PO Q8H PRN (Reason: nausea and vomiting) Qty: 10 RF: 0 multivitamin Tablet 1 tab PO DAILY RF: 0 cholecalciferol (vitamin D3) [Vitamin D3] 25 mcg (1,000 unit) Capsule 25 mcg PO DAILY RF: 0 oxycodone 5 mg tablet 5 mg PO Q4H PRN (Reason: pain) Qty: 14 RF: 0 Referrals: Antonio Corcoran MD [Primary Care Provider] - <Ami Wills DO - Last Filed: 05/05/20 07:31> Cosign ED Attending Umeshature Attestation: I was immediately available in the department for consultation. Documentation has been reviewed. I agree with assessment and plan.
[2020-04-30 14:39] LABS: Amorphous Sediment Urine 1+; Culture Indicated Urine Cult Not Indicated; RBC Urine 30-100/HPF (0-5/HPF); Squamous Epithelial Cell Urine 0-1 /HPF (0-5/HPF)
[2020-04-30] MEDS: KETOROLAC 60 MG/2 ML VIAL 30 MG IM (14:51)
--- NOTE | 2020-04-30 14:58 | DI.CT.S_ITS ---
PROCEDURE: CT ABDOMEN PELVIS W CON INDICATIONS: severe abd pain/LLQ recent ureterolithiasis TECHNIQUE: After the administration of intravenous contrast, 5 mm thick sections acquired from the diaphragm to the symphysis. 5 mm coronal and sagittal reformats were acquired. For radiation dose reduction, the following was used: automated exposure control, adjustment of mA and/or kV according to patient size. COMPARISON: [facility], CT, CT KIDNEY URETER BLADDER (KUB), 04/23/2020, 12:06. [facility], CT, ABDOMEN/PELVIS WITH CONTRAST, 01/23/2017, 14:59. FINDINGS: Image quality: Excellent. ABDOMEN: Lung bases: Lung bases are clear. Heart size is normal. Solid organs: Liver is normal in size and enhancement. Gallbladder appears normal. Biliary system is non dilated. Pancreas enhances normally. Spleen is normal in size and enhancement. No adrenal nodules. Kidneys demonstrate asymmetric size and enhancement, without right-sided hydronephrosis, but with mild enlargement of the craniocaudad length of the left kidney and slight hypoenhancement of the left renal cortex when compared to that on the right. This is associated with moderate left-sided hydronephrosis and hydroureter that extends inferiorly to the bladder level. At the bladder level there is a ovoid calculus that has an AP dimension of 10 mm and a transverse dimension of 7 mm. It is exactly in the same position and orientation as on the prior CT from 04/23/20, producing an appearance of impacted far distal left ureteral stone virtually at the orifice protruding into the bladder lumen. There are several adjacent pelvic phleboliths that have not changed in position from the prior study 04/23/20. This same calculus appears to have been present 01/23/17.. Peritoneum and bowel: Bowel loops demonstrate normal wall thickness and caliber. No free fluid or air. Nodes and vessels: No retroperitoneal or mesenteric adenopathy by size criteria. Aorta and inferior vena cava are normal in size. Miscellaneous: No ventral hernias. PELVIS: Genitourinary: Bladder wall thickness is normal. Miscellaneous: No inguinal hernias or adenopathy. Bones: No suspicious bony lesions. No vertebral body compression fractures. IMPRESSION: Long-standing far distal ureteral stone on the left slightly smaller in size in January of 2017 but present 04/23/20 and again today 04/30/20 with identical orientation and positioning. Despite this appearing to be within the bladder lumen it appears to be located within the protruding far distal ureteral orifice that projects partially into the bladder lumen. Note is made of hydronephrosis that is moderate in severity and a small degree of reduced perfusion through the left kidney cortex given is lower degree of enhancement when compared to normal appearance of the right. Dictated by: Vitaly Davidson M.D. on 04/30/2020 at 16:06 Approved by: Vitaly Davidson M.D. on 04/30/2020 at 16:20
[2020-04-30 16:55] VITALS: BP 119/57; PULSE 66; RESP 14; O2SAT 100
[2020-04-30 18:03] LABS: COVID19 -Nasal RAPID Negative (Negative)
== END 2020-04-30 17:16 | disposition home or self-care (01) ==
PROVIDERS: Emergency Medicine; Emergency Provider Student in an Organized Health Care Education/Training Program; Family Provider Internal Medicine; PCP Internal Medicine
DX: N20.1 Calculus of ureter (principal); R10.2 Pelvic and perineal pain; Z87.442 Personal history of urinary calculi
CPT/HCPCS: 10010; 74177; 80053; 81003; 81015; 83690; 85025; 87635; 96361; 96372; 96374; 96376; 99283; 99284; J1885; J2405; Q9967

== ENCOUNTER 2020-05-03 09:13 | Day surgery (SDC) | payer OTHER, SELFPAY ==
[2020-05-01 10:41] VITALS: BMI 22.9
[2020-05-03] VITALS (8 sets, daily range): BP systolic 113–124; BP diastolic 61–77; PULSE 74–94; RESP 10–20; TEMP 36.2–36.5; O2SAT 94–98; BMI 22.8
[2020-05-03] MEDS: LACTATED RINGERS 1,000 ML 42 ML IV ×2 (09:44→11:14)
--- NOTE | 2020-05-03 09:56 | PM.PREOP ---
Pre-operative Note Interval Note History & Physical reviewed/Exam performed by Physician: Yes Changes to H&P: No
[2020-05-03] MEDS: MIDAZOLAM 2 MG/2 ML VIAL IV (10:17)
[2020-05-03] MEDS: CEFAZOLIN 2 GM/100 ML FROZ.PIGGY IV (10:30)
--- NOTE | 2020-05-03 10:42 | SUR.PREOP ---
Medicated as instructed by Dr Pardo, pt placed on pulse ox. Jorgeka came and brought to OR.
--- NOTE | 2020-05-03 10:59 | SUR.OPER ---
Lithotomy on padded OR bed, head on pillow, arms secured on padded arm boards at <90 degrees abduction. Legs secured in padded yellow fins stirrups.
[2020-05-03] MEDS: BELLADONNA/OPIUM SUPPOSITORIES 1 EACH PR (11:15)
--- NOTE | 2020-05-03 11:18 | P.OP_ITS ---
Operative Date/Time/Diagnoses Date of procedure: 05/03/20 Time of procedure: 11:18 Pre-op diagnosis: 12 mm left distal ureteral calculus. Post-op diagnosis: other (Left ureterocele) Procedure & Clinicians Procedure: 1. Cystoscopy and transurethral incision of ureterocele (left). 2. Cystoscopy and left ureteral stone extraction. 3. Laser litholapaxy (less than 2.5 cm). Same procedure as scheduled: No Indications: 1.12 mm obstructing left distal ureteral calculus. 2. Intractable left renal colic. Surgeon: Shoshana Kingston Click Yes if Unassisted: Yes Anesthesia Type: General Operative Notes Findings: 1. Small urethral caruncle and mild associated atrophic vaginitis. 2. A thick walled moderate size left ureterocele. Closure Type: not applicable Specimen(s): other (Stone fragments) Estimated Blood Loss (mL): 0 Blood products transfused: none Tourniquet time (min): 0 Procedure in detail: The patient was positioned supine and administered general anesthesia. She was then repositioned in semi lithotomy in the lower abdomen, genitalia, and perineum were prepped and draped in sterile fashion. The 22 [place] laser and the scope was then passed in lower urinary tract with the findings as described above. The laser scope was then removed and the resectoscope was positioned in the bladder and the working element fit with the right angle Servin knife. A horizontal incision was then made in the distal portion of the ureterocele. The index calculus was then visualized and exposed. Using the hook of the Servin knife the stone was extracted from the ureteral lumen. All operating room personnel and patient were then fitted with laser safety eyewear. A 500 micron laser fiber was selected. Laser lithotripsy was then commenced with excellent result in stone fragmentation. Laser treatment was then halted. Now, the [employer] evacuator was utilized to collect the stone fragments. These fragments were then submitted to the laboratory for routine crystallographic analysis. Hemostasis was excellent. The bladder urothelium was minimally traumatized. No stent or catheter were left in situ. The patient was then awakened, transferred to [facility], and transferred recovery in stable condition. Complications: none Post-operative Condition: stable Disposition: PACU Plan for aftercare: Discharge home
[2020-05-03] MEDS: ONDANSETRON 4 MG/2 ML INJ IV (11:33)
--- NOTE | 2020-05-03 11:35 | SUR.PHASEI ---
Patient c/o nausea, medicated and Queaze provided
--- NOTE | 2020-05-03 11:48 | SUR.PHASEI ---
Report given to Pb
[2020-05-20 11:43] LABS: Size 3x3; Stone Analysis Source Left Ureter
[2020-05-20 11:44] LABS: Ca oxalate dihydrate 10; Ca oxalate monohydr 90
== END 2020-05-03 12:25 | disposition home or self-care (01) ==
PROVIDERS: Family Provider Internal Medicine; PCP Internal Medicine; Referring Provider Specialist; Visit Provider Specialist
PROC: 0TF78ZZ Fragmentation in Left Ureter, Via Natural or Artificial Opening Endoscopic (ICD-10-PCS; CPT 52353; principal; 2020-05-03 10:45)
DX: N20.1 Calculus of ureter (principal); N36.2 Urethral caruncle; N76.0 Acute vaginitis
CPT/HCPCS: 52317; 52300; 82365; J0690; J1100; J2250; J2405; J2704; J3010

== ENCOUNTER → 2020-05-30 10:37 | Outpatient (CLI) | payer OTHER, SELFPAY ==
[2020-05-30 11:05] LABS: Appearance Urine UA CLEAR; Bilirubin Urine UA NEGATIVE (NEGATIVE); Color Urine UA YELLOW; Glucose Urine UA NEGATIVE (Negative); Ketones Urine UA NEGATIVE (NEGATIVE); Leukocyte Esterase Urine UA NEGATIVE (NEGATIVE); Nitrite Urine UA NEGATIVE (Negative); Occult Blood Urine UA TRACE-INTACT (Negative); Protein Urine UA NEGATIVE (Negative); Urobilinogen Urine UA 0.2 E.U./dL (0.2)
[2020-05-30 11:38] LABS: pH Urine UA 5.5 (4.5-8.0)
== END ==
PROVIDERS: Family Provider Internal Medicine; PCP Internal Medicine; Referring Provider Specialist; Visit Provider Specialist
DX: N39.0 Urinary tract infection, site not specified (principal)
CPT/HCPCS: 81003

== ENCOUNTER → 2020-06-25 13:27 | Outpatient (CLI) | payer OTHER, SELFPAY ==
--- NOTE | 2020-06-25 13:29 | DI.RAD.S_ITS ---
PROCEDURE: XR KUB INDICATIONS: kidney stone open (bladder calculus has been documented as chronically present at the far distal margin of the left ureter, with secondary chronic hydronephrosis on the left. CT scanning has documented reduced perfusion to the left kidney when compared to the right as result. TECHNIQUE: One view of the abdomen acquired. COMPARISON: [facility], CT, CT KIDNEY URETER BLADDER (KUB), 04/23/2020, 12:06. [facility], CT, ABDOMEN/PELVIS WITH CONTRAST, 01/23/2017, 14:59. [facility], CR, XR KUB, 01/28/2017, 13:13. [facility], US, ABDOMEN COMPLETE, 08/30/2017, 8:12. [facility], RF, BARIUM SWALLOW, 08/30/2017, 6:56. [facility], CT, CT ABDOMEN PELVIS W CON, 04/30/2020, 15:13. FINDINGS: Surgical changes and devices: None. Bowel: Bowel gas pattern is normal. Soft tissues: No suspicious abdominal calcifications. Visualized solid organ contours appear normal in size. Centered just to the left of midline in an area similar to the site of the prior documented calculus within the far distal aspect of the left ureter a faintly visualized calcification remains of approximate size to the calculus previously documented by CT scanning. This calculus has been better visualized by CT scanning in all cases. Bones: No suspicious bony lesions. IMPRESSION: Within the far distal margin of the left ureter a relatively large calculus is suspected to remain but is less well visualized on the current plain film study than on prior CT scanning. It may be warranted to utilize bladder ultrasound targeted for identifying the calculus suspected to be within the orifice of the far distal ureter, prolapsed beyond the bladder wall into the bladder lumen but still within the distal ureter. This calculus has been present over multiple years, from the 1st CT scanning 01/23/17. It is suspected to remain in stable position, an abnormal finding. Bladder ultrasound also could be utilized to confirm it is sequestered within the distal left ureter. Changing position of the patient during sonographic visualization should document a bladder calculus to shift freely by gravity. A trapped calculus within the distal ureter would not move. Dictated by: Vitaly Davidson M.D. on 06/25/2020 at 14:07 Approved by: Vitaly Davidson M.D. on 06/25/2020 at 14:20
[2020-06-25 14:59] LABS: Calcium 9.8 mg/dL (8.4-10.2); Uric Acid 4.5 mg/dL (2.5-6.2)
[2020-06-26 08:27] LABS: Parathyroid Hormone Int 38 pg/mL (15-65)
== END ==
PROVIDERS: Family Provider Internal Medicine; PCP Internal Medicine; Referring Provider Specialist; Visit Provider Specialist
DX: N20.0 Calculus of kidney (principal)
CPT/HCPCS: 36415; 74018; 82310; 83970; 84550

== ENCOUNTER → 2020-07-08 09:08 | Outpatient (CLI) | payer OTHER, SELFPAY ==
--- NOTE | 2020-07-08 09:10 | DI.CT.S_ITS ---
PROCEDURE: CT PEL WO CON INDICATIONS: calculus of ureter TECHNIQUE: Noncontrast 3 mm axial sections acquired through the bony pelvis, with coronal and sagittal reformatting. COMPARISON: [facility], CT, CT ABDOMEN PELVIS W CON, 04/30/2020, 15:13. FINDINGS: Image quality: Excellent. Bones: Osteoarthritic changes are noted throughout bony pelvis. No fracture or dislocation. No evidence of avascular necrosis of femoral head. Degenerative disc disease in lower lumbar spine is seen. Soft tissues: There is no pelvic free fluid or free air. No abnormal bowel wall thickening. Appendix is visualized and is within normal limits. Sigmoid diverticulosis is seen, no evidence of acute diverticulitis. Urinary bladder wall thickness is normal. Previously described 10 x 7 mm left distal ureteral/orifice stone is no longer present. No hydronephrosis is seen on the current study. Numerous left-sided phleboliths are seen. Uterus and bilateral adnexa show no gross abnormality. IMPRESSION: 1. Previously noted 10 x 7 mm left distal ureteral/orifice stone is no longer present. No hydroureter is seen on the current study. Phleboliths are noted in left lower pelvis. Normal bladder wall thickness. 2. No pelvic free fluid or free air. Sigmoid diverticulosis, no evidence of acute diverticulitis. Dictated by: Pablo Smith M.D. on 07/08/2020 at 9:54 Approved by: Pablo Smtih M.D. on 07/08/2020 at 10:15
== END ==
PROVIDERS: Family Provider Internal Medicine; PCP Internal Medicine; Referring Provider Internal Medicine; Visit Provider Specialist
DX: N20.1 Calculus of ureter (principal); K57.30 Diverticulosis of large intestine without perforation or abscess without bleeding; M47.816 Spondylosis without myelopathy or radiculopathy, lumbar region; I87.8 Other specified disorders of veins
CPT/HCPCS: 72192

== ENCOUNTER → 2020-07-25 10:06 | Outpatient (CLI) | payer OTHER, SELFPAY ==
[2020-07-25 10:27] LABS: Add Manual Diff / Slide Review NO; Basophils Absolute Auto 0 /uL (0-100); Basophils Percent Auto 0.4 % (0-2); Eosinophils Absolute Auto 100 /uL (0-450); Eosinophils Percent Auto 1.5 % (2-4); Hematocrit 41.6 % (36-46); Hemoglobin 14.3 g/dL (12.0-16.0); Lymphocytes Absolute Auto 1400 /uL (1100-4500); Lymphocytes Percent Auto 27.3 % (25-40); Mean Corpuscular HGB Conc 34.4 % (30-36); Mean Corpuscular Hemoglobin 31.3 PG (26-34); Mean Corpuscular Volume 91.2 fL (80-100); Monocytes Absolute Auto 500 /uL (0-900); Monocytes Percent Auto 10.5 % (3-14); Neutrophils Absolute Auto 3100 /uL (1500-7000); Neutrophils Percent Auto 60.3 % (50-75); Platelet Count 219 X10^3/uL (150-400); Red Blood Cell Count 4.56 X10^6/uL (4.0-5.2); Red Cell Distribution Width 13.4 % (11.6-14.8); White Blood Cell Count 5.1 X10^3/uL (4.5-11.0)
[2020-07-25 10:41] LABS: Erythrocyte Sedimentation Rate 8 MM/HR (0-20)
[2020-07-25 10:59] LABS: Alanine Aminotransferase 24 IU/L (<35); Albumin 4.2 g/dL (3.5-5.0); Albumin Globulin Ratio 1.4 (1.0-2.8); Alkaline Phosphatase 67 U/L (38-126); Aspartate Aminotransferase 31 IU/L (14-36); BUN Creatinine Ratio 20.3 (6-22); Bilirubin Total 0.5 mg/dL (0.2-1.3); Blood Urea Nitrogen 13 mg/dL (7-17); C-Reactive Protein Quant 0.6 mg/dL (<1.0); Calcium 9.8 mg/dL (8.4-10.2); Carbon Dioxide 31 mmol/L (22-32); Chloride 106 mmol/L (98-107); Estimated Glomerular Filt Rate > 60.0 mL/min (>60); Glucose 90 mg/dL (80-110); HEMOLYSIS < 15 (0-50); Potassium 5.1 mmol/L (3.4-5.1); Sodium 140 mmol/L (137-145); Total Protein 7.2 g/dL (6.3-8.2)
== END ==
PROVIDERS: Family Provider Internal Medicine; PCP Internal Medicine; Referring Provider Internal Medicine; Visit Provider Internal Medicine
DX: R10.9 Unspecified abdominal pain (principal)
CPT/HCPCS: 36415; 80053; 85025; 85651; 86140

== ENCOUNTER → 2021-01-28 10:10 | Outpatient (CLI) | payer OTHER, SELFPAY ==
[2021-01-28 10:37] LABS: COVID19 -Nasal RAPID Negative (Negative)
== END ==
PROVIDERS: Family Provider Internal Medicine; PCP Internal Medicine; Visit Provider Family Medicine
DX: R05 Cough (principal); Z20.822 Contact with and (suspected) exposure to COVID-19
CPT/HCPCS: 87635

== ENCOUNTER → 2022-11-20 15:20 | Outpatient (CLI) | payer OTHER, SELFPAY ==
[2022-11-23 12:03] LABS: Fecal Immunochemical Test Negative (Negative)
== END ==
PROVIDERS: Family Provider Internal Medicine; PCP Internal Medicine; Referring Provider Internal Medicine; Visit Provider Internal Medicine
DX: Z12.11 Encounter for screening for malignant neoplasm of colon (principal)
CPT/HCPCS: 82274

== ENCOUNTER → 2023-01-22 07:54 | Outpatient (CLI) | payer OTHER, SELFPAY ==
[2023-01-22 11:07] LABS: BUN Creatinine Ratio 23.4 (6-22); Blood Urea Nitrogen 15 mg/dL (7-17); Calcium 9.2 mg/dL (8.4-10.2); Carbon Dioxide 30 mmol/L (22-32); Chloride 103 mmol/L (98-107); Cholesterol 254 mg/dL (140-199); Estimated Glomerular Filt Rate > 60 mL/min (>60); Glucose 80 mg/dL (80-110); HDL Cholesterol 87 mg/dL (40-60); HEMOLYSIS < 15 (0-50); LDL Cholesterol Calculated 142 mg/dL (<100); Potassium 4.3 mmol/L (3.4-5.1); Sodium 138 mmol/L (137-145); Triglycerides 127 mg/dL (35-150)
== END ==
PROVIDERS: Family Provider Internal Medicine; PCP Internal Medicine; Referring Provider Internal Medicine; Visit Provider Internal Medicine
DX: Z13.1 Encounter for screening for diabetes mellitus (principal); Z13.220 Encounter for screening for lipoid disorders; Z13.6 Encounter for screening for cardiovascular disorders
CPT/HCPCS: 36415; 80048; 80061

== ENCOUNTER → 2023-01-25 11:48 | Outpatient (CLI) | payer OTHER, SELFPAY ==
--- NOTE | 2023-01-25 11:48 | DI.RAD.S_ITS ---
PROCEDURE: XR CHEST 2V INDICATIONS: cough TECHNIQUE: 2 views of the chest were acquired. COMPARISON: None. FINDINGS: Surgical changes and devices: None. Lungs and pleura: Lungs are clear. No pleural effusions or pneumothorax. Mediastinum: Mediastinal contours are normal. Heart size is normal. Bones and chest wall: No suspicious bony abnormalities. Soft tissues appear unremarkable. IMPRESSION: No evidence acute pulmonary process. Dictated by: Shahriar Rob M.D. on 01/25/2023 at 14:00 Approved by: Shahriar Rob M.D. on 01/25/2023 at 14:00
== END ==
PROVIDERS: Family Provider Internal Medicine; PCP Internal Medicine; Referring Provider Internal Medicine; Visit Provider Internal Medicine
DX: R05.9 Cough, unspecified (principal)
CPT/HCPCS: 71046

== ENCOUNTER 2023-02-05 19:12 | Emergency (ER) | payer OTHER, SELFPAY ==
[2023-02-05 19:16] VITALS: BP 135/70; PULSE 87; RESP 18; TEMP 36.6; O2SAT 100; BMI 21.2
== END 2023-02-05 20:48 | disposition left against medical advice (07) ==
PROVIDERS: Emergency Provider Emergency Medicine; Family Provider Internal Medicine; PCP Internal Medicine
CPT/HCPCS: 99281

== ENCOUNTER 2023-09-13 05:43 | Emergency (ER) | payer OTHER, SELFPAY ==
--- NOTE | 2023-09-13 05:48 | ED.GENADULT ---
HPI - General Adult General Chief complaint: Skin/Abscess/Foreign Body Stated complaint: abd pain and welts on rt side Time Seen by Provider: 09/13/23 05:48 History of Present Illness HPI narrative: Otherwise healthy 68-year-old woman presents complaining of 2-3 days of right-sided abdominal pain and this morning noticed a rash developing along her right side. She is not complaining of fevers, chills, nausea vomiting or diarrhea. She does note she has a cough that she describes as a chronic cough it has been present for a number of years. She has seen her primary care doctor about this. An x-ray has been done that was unremarkable. She currently uses loratadine daily, she is tried nasal sprays and it has not influence the cough. She does not have any reflux. The cough is getting more persistent and beginning to interfere with sleep. In looking through primary care notes in May at looked like pulmonary function testing was going to be the next step in the workup. She has not had any advanced imaging such as CT scans nor she had pulmonary consultation. Related Data Home Medications Medication Instructions Recorded Confirmed cholecalciferol (vitamin D3) 25 25 mcg PO DAILY 05/03/20 06/08/23 mcg (1,000 unit) capsule (Vitamin D3) Multivitamin Gummie See Rx Instructions PO DAILY 07/25/20 06/08/23 vitamins A,C,P-xkfm-mclyax 4,296 1 cap PO BID 07/25/20 06/08/23 mcg-226 mg-90 mg capsule (PreserVision AREDS) ibuprofen 200 mg tablet 200 mg PO Q6H PRN 01/19/23 06/08/23 loratadine 10 mg tablet 10 mg PO DAILY PRN allergy symptoms 01/19/23 06/08/23 Previous Rx's Medication Instructions Recorded azelastine 137 mcg (0.1 %) nasal 2 spray intranasal BID #30 mL 06/08/23 spray aerosol oxycodone-acetaminophen 5 mg-325 1 tab PO Q6H PRN pain #14 tabs 09/13/23 mg tablet valacyclovir 1 gram tablet 1,000 mg PO TID #30 tabs 09/13/23 Allergies Allergy/AdvReac Type Severity Reaction Status Date / Time epinephrine [EPINEPHRINE] Allergy Unknown Heart Verified 06/08/23 14:42 palpatations Review of Systems Review of Systems Narrative: Pertinent positive and negative findings as per HPI Patient History Medical History (Updated 09/13/23 @ 06:14 by Radha Reed MD) Shingles Chronic cough Personal history of urinary calculi Lower urinary tract symptoms (LUTS) Calculus of distal left ureter H/O renal calculi Foot pain (2004) Plantar warts (~1970) History of vaginal delivery (1980) Surgical History Anesthesia History of dilation and curettage (1980) Family History Father Age: 98 Fam hx-ischem heart disease Family history of prostate cancer Mother Family history of ovarian cancer Brother No problems noted. Sister No problems noted. Social History household members: spouse and family Smoking Status: Never smoker alcohol intake: current Smoking Status: Never smoker alcohol intake frequency: a few times a week Substance Use Type: does not use Exam Initial Vital Signs Initial Vital Signs: General: Alert appropriate in no acute distress Respiratory: Able to speak in full sentences, no wheezing, no respiratory distress, mild dry cough Skin: Vesicular rash on an erythematous base in a T9 distribution on the right side of her abdomen Neurologic: Grossly intact no obvious asymmetries or abnormalities Psych: appropriate insight and affect, cooperative Medical Decision Making MDM Narrative Medical decision making narrative: CC: Right-sided abdominal pain and rash, chronic cough Data collected from: patient, Medical records reviewed: Primary care notes regarding recent discussion around chronic cough are reviewed Differential considered: For the rash, shingles, cellulitis. For the chronic cough, seasonal allergies, reflux, cough variant asthma, chronic bronchitis, lung cancer is within the differential she is a lifelong nonsmoker Exam documented above, pertinent findings include: Pulmonary exam is benign. She has a developing early classic zoster rash T9 distribution right side abdomen Treatments: Albuterol MDI 2 puffs with spacer and training to see if this might influence her chronic cough Discussion: Otherwise healthy 68-year-old woman with no reason for immune suppression presents with acute outbreak of zoster with 2-3 days of abdominal pain as prodrome. We will start her on valacyclovir 1 g t.i.d. for 10 days. Complications of posttraumatic neuralgia as well as secondary bacterial infection and infectivity are reviewed. Regarding her chronic cough, we will try albuterol MDI and see if this influences her cough. We will ask her to schedule an appointment with Dr. Corcoran to follow-up. At this time questions are answered and she is safe for discharge Discharge Plan Departure Patient Disposition: Home Clinical Impression: Chronic cough Shingles Qualifiers: Herpes zoster complications: without complications Qualified Code(s): B02.9 - Zoster without complications Instructions: DI for Shingles Activity Restrictions/Additional Instructions: Thank you for coming in today The rash on the side is shingles. This is a reactivation of chickenpox. It effects the nerve which is why it is so painful. It also explains the abdominal pain that you are experiencing over the last couple of days. I have given you a prescription for bowel acyclovir, an antiviral medication, to hopefully reduce the duration of this outbreak and reduce the risk that you will have complications from post herpetic neuralgia. Please complete the entire 10 day course. Using 400 mg of ibuprofen (2 bpeq-npu-kkuofiy pills) and 1 Tylenol every 6 hours can be very helpful in controlling pain. For severe pain you can use 400 mg of ibuprofen and 1 Percocet. Any day that you choose to use Percocet please make sure you are adding a stool softener. I recommend additional magnesium or MiraLax. MiraLax is available [id number]. Prescriptions were electronically transmitted to [facility] this morning Regarding chronic cough, the fact that it is continuing to worsen means that you do need to follow up with Dr. Corcoran and be persistent in going to the next step if you are not finding results. The most common reasons for chronic cough are seasonal allergies, cough variant asthma, reflux. You did have a recent chest x-ray that was relatively unremarkable. Today I have given you an albuterol metered dose inhaler. Any time that you are having significant cough I would recommend trying 2 puffs of the inhaler and see if this influences her symptoms. If it does, you have an option to use if you choose. If it does not I would recommend scheduling appointment with Dr. Corcoran to continue workup of your persistent and increasing chronic cough. If you find that you are getting worse or develop any new symptoms, please feel free to return to the emergency department for further evaluation. Prescriptions: New valacyclovir 1 gram tablet 1,000 mg PO TID Qty: 30 0RF oxycodone-acetaminophen 5-325 mg tablet 1 tab PO Q6H PRN (Reason: pain) Qty: 14 0RF No Action PreserVision AREDS [id number] [id number] capsule 1 cap PO BID Multivitamin Gummie See Rx Instructions PO DAILY Rx Instructions: 2 gummies PO daily; loratadine 10 mg tablet 10 mg PO DAILY PRN (Reason: allergy symptoms) ibuprofen 200 mg tablet 200 mg PO Q6H PRN azelastine 137 mcg (0.1 %) aerosol,spray 2 spray intranasal BID Qty: 30 1RF Rx Instructions: administer into each nostril cholecalciferol (vitamin D3) [Vitamin D3] 25 mcg (1,000 unit) Capsule 25 mcg PO DAILY Referrals: Antonio Corcoran MD [Primary Care Provider] - Stand Alone Forms: Patient Portal/API
[2023-09-13 05:50] VITALS: BP 142/72; PULSE 78; O2SAT 97
[2023-09-13 06:00] VITALS: BP 129/69; PULSE 68; RESP 18; O2SAT 98
[2023-09-13 06:06] VITALS: BP 142/72; PULSE 71; RESP 16; TEMP 36.9; O2SAT 99; BMI 21.2
== END 2023-09-13 06:45 | disposition home or self-care (01) ==
PROVIDERS: Emergency Provider Emergency Medicine; Family Provider Internal Medicine; PCP Internal Medicine
DX: B02.9 Zoster without complications (principal); R05.3 Chronic cough
CPT/HCPCS: 99281; A9270

== ENCOUNTER → 2025-05-22 11:09 | Outpatient (CLI) | payer OTHER, SELFPAY ==
[2025-05-22 12:42] LABS: Alanine Aminotransferase 21 IU/L (<35); Albumin 4.4 g/dL (3.5-5.0); Albumin Globulin Ratio 1.6 (1.0-2.8); Alkaline Phosphatase 70 U/L (38-126); Blood Urea Nitrogen 14 mg/dL (7-17); Calcium 9.7 mg/dL (8.4-10.2); Carbon Dioxide 27 mmol/L (22-32); Chloride 104 mmol/L (98-107); Estimated Glomerular Filt Rate > 60 mL/min (>60); Globulin 2.8 g/dL (1.7-4.1); Glucose 85 mg/dL (70-99); HEMOLYSIS < 15 (0-50); Potassium 4.3 mmol/L (3.4-5.1); Sodium 138 mmol/L (137-145); Total Protein 7.2 g/dL (6.3-8.2)
[2025-05-22 15:00] LABS: Vitamin D 25 Hydroxy (D3) 84.7 ng/mL (30.0-100.0)
== END ==
PROVIDERS: PCP Internal Medicine; Referring Provider Internal Medicine; Visit Provider Internal Medicine
DX: E55.9 Vitamin D deficiency, unspecified (principal); Z87.442 Personal history of urinary calculi
CPT/HCPCS: 36415; 80053; 82306